=== PATIENT | female | born 1945 | race Two or more races ===

== ENCOUNTER 2019-09-02 14:06 | Inpatient (IN) | payer OTHER ==
[~2019-09-02] VITALS: Ht 162.6 cm; Wt 77.1 kg
[2019-09-17] MEDS ORDERED: PANTOPRAZOLE SO40 MG PO (15:49)
[2019-09-17] MEDS ORDERED: BREO ELLIPTA 21 EACH IH (15:49)
[2019-09-17] MEDS ORDERED: METROPOLOL PO (15:50)
[2019-09-17] MEDS ORDERED: COZAAR25 MG PO (15:50)
[2019-09-17] MEDS ORDERED: GABAPENTIN100 MG (15:51)
[2019-09-17] MEDS ORDERED: GLUMETZA500 MG PO (15:51)
[2019-09-17] MEDS ORDERED: ATORVASTATIN CA40 MG PO (15:51)
[2019-09-17] MEDS ORDERED: DAFLONEX-XL 11300 MG PO (15:52)
[2019-09-17] MEDS ORDERED: TUSSICAPS 10 M1 EACH PO ×2 (15:52→15:54)
[2019-09-17] MEDS ORDERED: ESSENTIAL DAIL1 EACH PO (15:53)
[2019-09-17] MEDS ORDERED: FAMOTI PO (15:55)
[2019-09-17] MEDS ORDERED: ASPIR 8181 MG PO (15:55)
[2019-09-17] MEDS ORDERED: PROBIOTIC1 EAC2 PO (15:55)
[2019-09-17] MEDS ORDERED: MICROZIDE12.5 MG PO (15:56)
[2019-09-17] MEDS ORDERED: PROAIR HFA8.5 GM IH (15:56)
[2019-09-17] MEDS ORDERED: ALLERGY RELIE15.8 ML (15:57)
[2019-09-24] MEDS ORDERED: FAMOTIDINE40 MG PO (08:25)
[2019-09-24] MEDS ORDERED: MONTELUKAST SOD10 MG (08:26)
[2019-09-24] MEDS ORDERED: TOPROL XL25 M1 PO (08:27)
== END 2019-09-27 16:56 | disposition home or self-care (01) | DRG 331 ==
LOC: SURH 09-24 06:30 → O/R 09-24 06:30 → SURG 09-24 10:30 → SURH 09-24 15:02
PROVIDERS: ADMIT Colon & Rectal Surgery
PROC: 07TB4ZZ Resection of Mesenteric Lymphatic, Percutaneous Endoscopic Approach (ICD-10-PCS; 2019-09-24)
PROC: 4A033R1 Measurement of Arterial Saturation, Peripheral, Percutaneous Approach (ICD-10-PCS; 2019-09-24)
PROC: 3E0F7GC Introduction of Other Therapeutic Substance into Respiratory Tract, Via Natural or Artificial Opening (ICD-10-PCS; 2019-09-24)
PROC: 4A12X4Z Monitoring of Cardiac Electrical Activity, External Approach (ICD-10-PCS; 2019-09-24)
PROC: 0DTF4ZZ Resection of Right Large Intestine, Percutaneous Endoscopic Approach (ICD-10-PCS; principal; 2019-09-24 10:30)
DX: C18.2 Malignant neoplasm of ascending colon (principal); E78.00 Pure hypercholesterolemia, unspecified; E11.9 Type 2 diabetes mellitus without complications; I11.9 Hypertensive heart disease without heart failure; G47.33 Obstructive sleep apnea (adult) (pediatric); J45.20 Mild intermittent asthma, uncomplicated

== ENCOUNTER 2020-10-16 06:52 | Day surgery (SDC) | payer OTHER ==
[~2020-10-16 06:52] MED LIST: ALLERGY RELIE15.8 ML; ASPIR 8181 MG PO; ATORVASTATIN CA40 MG PO; BREO ELLIPTA 21 EACH IH; COZAAR25 MG PO; DAFLONEX-XL 11300 MG PO; ESSENTIAL DAIL1 EACH PO; FAMOTI PO; FAMOTIDINE40 MG PO; GABAPENTIN100 MG; GLUMETZA500 MG PO; METROPOLOL PO; MICROZIDE12.5 MG PO; MONTELUKAST SOD10 MG; PANTOPRAZOLE SO40 MG PO; PROAIR HFA8.5 GM IH; PROBIOTIC1 EAC2 PO; TOPROL XL25 M1 PO; TUSSICAPS 10 M1 EACH PO
== END 2020-10-16 10:50 | disposition home or self-care (01) ==
LOC: AMB-ENDOS 06:52
PROVIDERS: ATTEND Colon & Rectal Surgery
DX: D12.3 Benign neoplasm of transverse colon (principal); D12.4 Benign neoplasm of descending colon; K64.1 Second degree hemorrhoids; Z20.828 Contact with and (suspected) exposure to other viral communicable diseases

== ENCOUNTER 2021-11-26 06:42 | Day surgery (SDC) | payer OTHER | END 2021-11-26 11:00 | disposition home or self-care (01) | LOC: AMB-ENDOS 06:42 | PROVIDERS: ATTEND Colon & Rectal Surgery | DX: D12.3 Benign neoplasm of transverse colon (principal); K64.1 Second degree hemorrhoids; Z20.822 Contact with and (suspected) exposure to COVID-19 ==